=== PATIENT | male | born 1975 | race African-American/Black ===

== ENCOUNTER 2016-09-20 11:31 | Emergency (ER) | payer OTHER ==
[2016-09-20 11:37] VITALS: BP 154/76; PULSE 83; TEMP 98.2; BMI 41.3
[2016-09-20] MEDS ORDERED: IBUPROFEN 400 MG TABLET (FP) PO ONE ×2 (12:35→12:39)
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
== END 2016-09-20 12:37 | disposition home or self-care (01) ==
LOC: JERFT 11:31
DX: S49.81XA Other specified injuries of right shoulder and upper arm, initial encounter (principal); V44.5XXA Car driver injured in collision with heavy transport vehicle or bus in traffic accident, initial encounter; Y92.414 Local residential or business street as the place of occurrence of the external cause; Y93.89 Activity, other specified
CPT/HCPCS: 99281-25

== ENCOUNTER 2019-03-21 20:39 | Inpatient (IN) | payer OTHER ==
[2019-03-21] MEDS ORDERED: KETOROLAC TROMETHAMINE 30 MG/1 ML VIAL IVPUSH ONE (21:09)
--- NOTE | 2019-03-21 21:09 | PDOC ---
Rapid Medical Evaluation Chief Complaint: Pain Time Seen by Provider: 03/21/19 21:07 Medical Evaluation: Allergies Allergy/AdvReac Type Severity Reaction Status Date / Time No Known Allergies Allergy Verified 09/20/16 11:33 03/21/19 21:07 HPI: C/O constipation and history of renal stones x6 days seen at another hospital PE: No gross deficits ORDERS: CBC, CMP, UA, TORODOL Discharge Disposition - Diagnosis Back pain - Referrals - Patient Instructions - Post Discharge Activity
[2019-03-21 21:11] VITALS: BMI 41.3
[2019-03-21 22:08] LABS: BASO % 0.3 % (0-2.0); EOS % 0.7 % (0-4.5); HEMATOCRIT 44.3 % (35.4-49); HEMOGLOBIN 15.1 GM/dL (11.7-16.9); LYMPH % 19.2 % (8-40); MEAN CELL VOLUME 88.3 fl (80-96); MEAN PLT VOLUME 8.6 fl (7.5-11.1); MONO % 12.1 % (3.8-10.2); NEUT % 67.7 % (42.8-82.8); PLATELET COUNT 231 K/MM3 (134-434); RBC 5.02 M/mm3 (4.00-5.60); RDW 14.1 % (11.9-15.9); WHITE BLOOD COUNT 10.5 K/mm3 (4.0-10.0)
[2019-03-21 22:30] LABS: ALBUMIN 3.8 g/dl (3.4-5.0); CALCIUM 9.7 mg/dL (8.5-10.1); TOT PROT 8.2 g/dl (6.4-8.2)
[2019-03-21 22:43] LABS: EPI CELLS 0.3 /HPF (0-5/HPF); HYALINE CASTS 0 /lpf (0-8); PH,URINE 5.5 (5.0-8.0); URINE APPEARANCE CLEAR; URINE BACTERIA 1.2 /hpf (NEGATIVE); URINE BILIRUBIN NEGATIVE (NEGATIVE); URINE COLOR YELLOW; URINE GLUCOSE (UA) NEGATIVE (NEGATIVE); URINE KETONE NEGATIVE (NEGATIVE); URINE LEUK ESTERASE NEGATIVE (NEGATIVE); URINE NITRITE NEGATIVE (NEGATIVE); URINE PROTEIN NEGATIVE (NEGATIVE); URINE RBC 1 /hpf (0-4); URINE UROBILINOGEN 0.2 mg/dL (0.2-1.0); URINE WBC 0 /hpf (0-5)
--- NOTE | 2019-03-21 23:12 | PDOC ---
*Physical Exam - Vital Signs Last Vital Signs Temp Pulse Resp BP Pulse Ox 99.0 F 93 H 22 H 138/84 100 03/21/19 21:07 03/21/19 21:07 03/21/19 21:07 03/21/19 21:07 03/21/19 21:07 ED Treatment Course - LABORATORY CBC & Chemistry Diagram: 03/21/19 22:00 03/21/19 22:00 - ADDITIONAL ORDERS Additional order review: Laboratory Results 03/21/19 03/21/19 03/21/19 22:00 22:00 21:43 Sodium 133 L Potassium 5.0 Chloride 96 L Carbon Dioxide 30 Anion Gap 8 BUN 16.0 Creatinine 2.0 H Est GFR (CKD-EPI)AfAm 46.01 Est GFR (CKD-EPI)NonAf 39.70 Random Glucose 121 H Calcium 9.7 Total Bilirubin 1.0 AST 30 ALT 86 H Alkaline Phosphatase 142 H Total Protein 8.2 Albumin 3.8 Lipase 124 Urine Color Yellow Urine Appearance Clear Urine pH 5.5 Ur Specific [place] 1.011 Urine Protein Negative Urine Glucose (UA) Negative Urine Ketones Negative Urine Blood Trace Urine Nitrite Negative Urine Bilirubin Negative Urine Urobilinogen 0.2 Ur Leukocyte Esterase Negative Urine WBC (Auto) 0 Urine RBC (Auto) 1 Urine Casts (Auto) 0 U Epithel Cells (Auto) 0.3 Urine Bacteria (Auto) 1.2 03/21/19 22:00 RBC 5.02 MCV 88.3 MCHC 34.0 RDW 14.1 MPV 8.6 Neutrophils % 67.7 Lymphocytes % 19.2 Monocytes % 12.1 H Eosinophils % 0.7 Basophils % 0.3 Medical Decision Making - Medical Decision Making 03/21/19 23:11 Patient seen by the advanced practice provider under my direct supervision. Ancillary testing reviewed as necessary. I agree with plan as outlined by the advanced practice provider. *DC/Admit/Observation/Transfer Diagnosis at time of Disposition: Back pain - Referrals - Patient Instructions - Post Discharge Activity
--- NOTE | 2019-03-21 23:59 | PDOC ---
History of Present Illness - General Chief Complaint: Pain Stated Complaint: KIDNEY STONE Time Seen by Provider: 03/21/19 21:07 - History of Present Illness Initial Comments: 03/21/19 23:54 CHIEF COMPLAINT: kidney stone HISTORY OF PRESENT ILLNESS: 44 yo M with hx of NIDDM and BPH presents to ED with left flank and groin pain. Patient reports that last night, he and his "took pills to clean out our system for a diet," and around 2 am that night began feeling abdominal pain and started vomiting all night instead of making bowel movements. He went to [facility] where they did a CT and showed a kidney stone. He states "they gave me pain pills (tramadol) and sent me home, they told me to drink lots of water. He reports that his pain persisted so he went to [place] again the following Tuesday, where they gave him nausea medicine and laxatives/stool softeners, as he had not had a BM since the last . He has since also taken senna OTC and is still unable to go. He denies any fever but reports chills since this morning, as well as abdominal cramping and distension. No recent travel or sick contacts. PAST MEDICAL HISTORY: Denies past medical history FAMILY HISTORY: Denies SOCIAL HISTORY: Denies tobacco, alcohol, illicit drug use. SURGICAL HISTORY: Denies ALLERGIES: No known drug allergies REVIEW OF SYSTEMS General/Constitutional: Denies fever or chills. Denies weakness, weight change. HEENT: Denies change in vision. Denies ear pain or discharge. Denies sore throat. Cardiovascular: Denies chest pain or shortness of breath. Respiratory: Denies cough, wheezing, or hemoptysis. Gastrointestinal: Denies nausea, vomiting, diarrhea or constipation. Denies rectal bleeding. Genitourinary: Urinary frequency. Left groin pain. Musculoskeletal: Denies joint or muscle swelling or pain. Denies neck or back pain. Skin and breasts: Denies rash or easy bruising. Neurologic: Denies headache, vertigo, loss of consciousness, or loss of sensation. PHYSICAL EXAM General Appearance: Well-appearing, appropriately dressed. No apparent distress , no intoxication. HEENT: EOMI, PERRLA, normal ENT inspection, normal voice, TMs normal, pharynx normal. No conjunctival pallor. No photophobia, scleral icterus. Neck: Supple. Trachea midline. No tenderness, rigidity, carotid bruit, stridor , lymphadenopathy, or thyromegaly. Respiratory/Chest: Lungs CTAB. No shortness of breath, chest tenderness, respiratory distress, accessory muscle use. No crackles, rales, rhonchi, stridor , wheezing, dullness Cardiovascular: RRR. S1, S2. No JVD, murmur, bradycardia, tachycardia. Vascular Pulses: Dorsalis-Pedis (R): 2+, Dorsalis-Pedis (L): 2+ Gastrointestinal/Abdominal: Distended abdomen. Soft, no tenderness or rebound tenderness. No organomegaly, pulsatile mass, guarding, hernia, hepatomegaly, splenomegaly. Lymphatic: No adenopathy, tenderness. Musculoskeletal/Extremities: L CVA tenderness. Normal inspection. FROM of all extremities, normal capillary refill. Pelvis Stable. No CVA tenderness. No tenderness to extremities, pedal edema, swelling, erythema or deformity. Integumentary: Appropriate color, dry, warm. No cyanosis, erythema, jaundice or rash Neurologic: header set up operator II-XII intact. Fully oriented, alert. Appropriate mood/affect. Motor strength 5/5. No appreciable EOM palsy, facial droop or sensory deficit. 03/22/19 02:13 Past History - Past Medical History Allergies/Adverse Reactions: Allergies Allergy/AdvReac Type Severity Reaction Status Date / Time No Known Allergies Allergy Verified 03/21/19 21:11 Home Medications: Ambulatory Orders NK [No Known Home Medication] 09/20/16 COPD: No Diabetes: Yes Kidney Stones: Yes - Suicide/Smoking/Psychosocial Hx Smoking History: Former smoker Have you smoked in the past 12 months: No Information on smoking cessation initiated: No Hx Alcohol Use: No Drug/Substance Use Hx: No *Physical Exam - Vital Signs Last Vital Signs Temp Pulse Resp BP Pulse Ox 99.0 F 93 H 22 H 138/84 100 03/21/19 21:07 03/21/19 21:07 03/21/19 21:07 03/21/19 21:07 03/21/19 21:07 ED Treatment Course - LABORATORY CBC & Chemistry Diagram: 03/21/19 22:00 03/21/19 22:00 - ADDITIONAL ORDERS Additional order review: Laboratory Results 03/21/19 03/21/19 03/21/19 22:00 22:00 21:43 Sodium 133 L Potassium 5.0 Chloride 96 L Carbon Dioxide 30 Anion Gap 8 BUN 16.0 Creatinine 2.0 H Est GFR (CKD-EPI)AfAm 46.01 Est GFR (CKD-EPI)NonAf 39.70 Random Glucose 121 H Calcium 9.7 Total Bilirubin 1.0 AST 30 ALT 86 H Alkaline Phosphatase 142 H Total Protein 8.2 Albumin 3.8 Lipase 124 Urine Color Yellow Urine Appearance Clear Urine pH 5.5 Ur Specific [place] 1.011 Urine Protein Negative Urine Glucose (UA) Negative Urine Ketones Negative Urine Blood Trace Urine Nitrite Negative Urine Bilirubin Negative Urine Urobilinogen 0.2 Ur Leukocyte Esterase Negative Urine WBC (Auto) 0 Urine RBC (Auto) 1 Urine Casts (Auto) 0 U Epithel Cells (Auto) 0.3 Urine Bacteria (Auto) 1.2 03/21/19 22:00 RBC 5.02 MCV 88.3 MCHC 34.0 RDW 14.1 MPV 8.6 Neutrophils % 67.7 Lymphocytes % 19.2 Monocytes % 12.1 H Eosinophils % 0.7 Basophils % 0.3 Medical Decision Making - Medical Decision Making 03/22/19 02:11 44 yo M with hx of NIDDM and BPH presents to ED with left flank and groin pain. -labs, urine -CTAP -toradol CT shows left ureteral stone measuring 2.7 mm 6 cm downstream from ureteropelvic junction. Associated moderate hydronephrosis and extensive perinephric edema with mild ascites in left paracolic gutter. Creatinine 2.0. Will admit for JULIA secondary to stone. 03/22/19 02:18 Discussed case with admitting hospitalist resident, patient accepted for inpatient admission. *DC/Admit/Observation/Transfer Diagnosis at time of Disposition: Hydronephrosis with renal and ureteral calculus obstruction, JULIA (acute kidney injury) - Discharge Dispostion Decision to Admit order: Yes - Referrals - Patient Instructions - Post Discharge Activity
[2019-03-22] MEDS ORDERED: KETOROLAC TROMETHAMINE 30 MG/1 ML VIAL ONE (00:06)
[2019-03-22] MEDS ORDERED: KETOROLAC TROMETHAMINE 60 MG/2 ML VIAL IM ONE (00:14)
--- NOTE | 2019-03-22 02:29 | PN ---
Teaching Attending Note Name of Resident: Ivet Stanley ATTENDING PHYSICIAN STATEMENT I saw and evaluated the patient. I reviewed the resident's note and discussed the case with the resident. I agree with the resident's findings and plan as documented. SUBJECTIVE: Patient is a 44 year old man with PMH of NIDDM and BPH who presents to ED with left flank and groin pain. Patient reports that last night, he and his "took pills to clean out our system for a diet," and around 2 am that night began feeling abdominal pain and started vomiting all night instead of making bowel movements. He went to [facility] where they did a CT and showed a kidney stone. He states "they gave me pain pills (tramadol) and sent me home and told me to drink lots of water". He reports that his pain persisted so he went back to [place] and was given "nausea medicine and laxatives/stool softeners", as he had not had a BM since the last . He took Senna OTC and is still unable to have a BM. He denies any fever but reports chills since this morning, as well as abdominal cramping and distension. OBJECTIVE: Alert Vital Signs Period Temp Pulse Resp BP Sys/Woodson Pulse Ox Last 24 Hr 99.0 F 93 22 138/84 100 HEENT: No Jaundice, eye redness or discharge, PERRLA, EOMI. Normocephalic, atraumatic. External ears are normal and hearing is grossly intact. No nasal discharge. Neck: Supple, nontender. No palpable adenopathy or thyromegaly. No JVD Chest: Good effort. Clear to auscultation and percussion. Heart: Regular. No S3, rub or murmur Abdomen: Distended, soft, and left CVAT; no HSM. No rebound or guarding. Normal bowel sounds. Ext: Peripheral pulses intact. No leg edema. Skin: Warm and dry. No petechiae, rash or ecchymosis. Neuro: Alert. Oriented x3. CN 2-12 grossly intact. Sensation grossly intact in all four extremities and DTR are symmetric. Psych: Appropriate mood and affect. Good insight. Home Medications Medication Instructions Recorded NK [No Known Home Medication] 09/20/16 Abnormal Lab Results 03/21/19 03/21/19 22:00 22:00 WBC 10.5 H Monocytes % 12.1 H Sodium 133 L Chloride 96 L Creatinine 2.0 H Random Glucose 121 H ALT 86 H Alkaline Phosphatase 142 H ASSESSMENT AND PLAN: 1. Left kidney stone - Noncontrast CT of abdomen/pelvis shows left ureteral stone measuring 2.7 mm, 6 cm downstream from ureteropelvic junction. Associated moderate hydronephrosis and extensive perinephric edema with mild ascites in left paracolic gutter. Will treat with IV morphine for pain, IV NS, flomax and keep him NPO. Give a Fleet enema and Miralax after procedure. Strain his urine and do outpatient search for stone risk factor. Consult urology. 2. JULIA? - Unilateral kidney obstruction would not entirely explain azotemia. Will consult nephrology and avoid nephrotoxic agents such as NSAIDS, aminoglycosides, contrast dyes and certain Alternative medicine products. 2. DM For now, we will hold the home diabetes drugs and implement sliding scale insulin regimen. Provide comprehensive diabetes care with patient teaching and counseling about the importance of adherence to prescribed diabetes regimen, euglycemia, eye care and foot care. 3. Tobacco Use Counseled on risks associated with tobacco use. We will provide patient all the necessary assistance to facilitate smoking cessation and prescribe Nicotine patch. 4. Morbid Obesity Counseled on the risks associated with obesity. Will provide patient all the necessary assistance, counseling and positive reinforcement to facilitate weight loss. Consult vacuum applicator operator. 5. DVT prophylaxis - SCD for now and Heparin 5000u sq tid after ?urologic procedure. 6. Advance directives - Full code.
[2019-03-22] MEDS ORDERED: MORPHINE SULFATE 2 MG/ML VIAL IVPUSH PRN ×2 (02:56→15:10)
[2019-03-22] MEDS ORDERED: SODIUM CHLORIDE 1,000 ML IV SCH (03:00)
--- NOTE | 2019-03-22 03:00 | HP ---
CHIEF COMPLAINT: left flank pain PCP: Dr. Lizet Bedoya HISTORY OF PRESENT ILLNESS: Patient is a 44 y/o male with a history of DM, low testosterone, and frequent urination who presents with left flank pain. Patient had this pain beginning last week. On Tuesday at 12 am he took laxatives to help lose weight and the pain began at 2 am later that day. He went to [facility] where he had imaging done and was diagnosed with a kidney stone. He was sent home with pain medication. A few days later patient returned because he still had the pain and had not had a bowel movement in two days. At that time they told him it was too soon to have repeat imaging and he was sent home with stool softeners. Patient presents today because he still has the left flank pain and he has yet to have a bowel movement. the pain radiates to his lower back. Patient denies ever having a kidney stone in the past, reports he believe his mother has a kidney stone. Patient reports in the past he has some testicular pain where his testicles will become swollen and his stomach hurts, but he knew this was different because his testicles did not swell. Patient has recently been tested for STD's and reported they were all negative. He is sexually active with one female partner and does not use protection. Patient denies any genital discharge , and hematuria, or dysuria. He has had a few episodes of vomiting. Patient reports that he used to hold his urine often and now when he drinks liquid he typically has to urinate right after and it is not currently any different. ER course was notable for: (1)toradol (2) (3) Recent Travel: denies PAST MEDICAL HISTORY: DM, low testosterone, and frequent urination PAST SURGICAL HISTORY: n/a Social History: Smoking: denies Alcohol: socially Drugs: denies Family History: mother: kidney stones, DM, HTN, father: HTN Allergies No Known Allergies Allergy (Verified 03/21/19 21:11) HOME MEDICATIONS: Home Medications Medication Instructions Recorded NK [No Known Home Medication] 09/20/16 REVIEW OF SYSTEMS CONSTITUTIONAL: loss of appetite Absent: fever, chills, diaphoresis, generalized weakness, malaise, weight change HEENT: Absent: rhinorrhea, nasal congestion, throat pain, throat swelling, difficulty swallowing, mouth swelling, ear pain, eye pain, visual changes CARDIOVASCULAR: Absent: chest pain, syncope, palpitations, irregular heart rate, lightheadedness , peripheral edema RESPIRATORY: Absent: cough, shortness of breath, dyspnea with exertion, orthopnea, wheezing, stridor, hemoptysis GASTROINTESTINAL:abdominal distension Absent: abdominal pain, nausea, vomiting, diarrhea, constipation, melena, hematochezia GENITOURINARY: flank pain, lowere abdominal pressure Absent: dysuria, frequency, urgency, hesitancy, hematuria, genital pain MUSCULOSKELETAL: Absent: myalgia, arthralgia, joint swelling, back pain, neck pain SKIN: Absent: rash, itching, pallor HEMATOLOGIC/IMMUNOLOGIC: Absent: easy bleeding, easy bruising, lymphadenopathy, frequent infections ENDOCRINE: Absent: unexplained weight gain, unexplained weight loss, heat intolerance, cold intolerance NEUROLOGIC: Absent: headache, focal weakness or paresthesias, dizziness, unsteady gait, seizure, mental status changes, bladder or bowel incontinence PSYCHIATRIC: Absent: anxiety, depression, suicidal or homicidal ideation, hallucinations. PHYSICAL EXAMINATION Vital Signs - 24 hr 03/21/19 21:07 Temperature 99.0 F Pulse Rate 93 H Respiratory 22 H Rate Blood Pressure 138/84 O2 Sat by Pulse 100 Oximetry (%) GENERAL: Awake, alert, and fully oriented, in no acute distress. HEAD: Normal with no signs of trauma. EYES: Pupils equal, round and reactive to light, extraocular movements intact, EARS, NOSE, THROAT: , oropharynx clear without exudates. Moist mucous membranes. NECK: Normal range of motion, supple without lymphadenopathy, JVD, or masses. LUNGS: Breath sounds equal, clear to auscultation bilaterally. No wheezes, and no crackles. No accessory muscle use. HEART: Regular rate and rhythm, normal S1 and S2 without murmur, rub or gallop. ABDOMEN: distended, non tender, MUSCULOSKELETAL: left flank pain to lower back, no CVA tenderness LOWER EXTREMITIES: 2+ pulses, warm, well-perfused. No calf tenderness. No peripheral edema. SKIN: Warm, dry, normal turgor, no rashes or lesions noted, normal capillary refill. CBC, BMP 03/21/19 22:00 03/21/19 22:00 ASSESSMENT/PLAN: Patient is a 44 y/o male with a history of DM, low testosterone, and frequent urination who presents with Nephrolithiasis. #Nephrolithiasis with JULIA - CT: left ureteral stone measuring 2.7 mm 6cm downstream from uteropelvic junction - NS @ 125 - morphine 2 q4h - f/u consult Dr. Torres, Urology, NPO in case of any procedures in AM - patient would benefit for f/u with Nephrology as an outpatient for JULIA and further testing of stone - avoid further nephrotoxic agents in patient #constipation - fleet enema 1x ordered - miralax 17 gm bid #DM - BGM q6h with NPO - SS q6h - recommend out patient A1C f/u, discuss healthy lifestyle choices with diet and excercise #DVT ppz - SCD's for any possible Uro procedures today FEN - NS @ 125 - NPO Dispo: f/u with Urology Visit type - Emergency Visit Emergency Visit: Yes ED Registration Date: 03/22/19 Care time: The patient presented to the Emergency Department on the above date and was hospitalized for further evaluation of their emergent condition. - New Patient This patient is new to me today: Yes Date on this admission: 03/26/19 - Critical Care Critical Care patient: No ATTENDING PHYSICIAN STATEMENT I saw and evaluated the patient. I reviewed the resident's note and discussed the case with the resident. I agree with the resident's findings and plan as documented. SUBJECTIVE: OBJECTIVE: ASSESSMENT AND PLAN:
[2019-03-22] MEDS: INSULIN SLIDING SCALE (NOVOLOG) 1 VIAL SQ SCH ×4 (04:50→22:47)
[2019-03-22 06:29] LABS: BASO % 0.5 % (0-2.0); EOS % 0.9 % (0-4.5); HEMATOCRIT 38.3 % (35.4-49); LYMPH % 23.5 % (8-40); MCH 30.1 pg (25.7-33.7); MEAN CELL VOLUME 88.7 fl (80-96); MEAN PLT VOLUME 8.1 fl (7.5-11.1); MONO % 14.1 % (3.8-10.2); PLATELET COUNT 202 K/MM3 (134-434); RBC 4.32 M/mm3 (4.00-5.60); WHITE BLOOD COUNT 9.8 K/mm3 (4.0-10.0)
[2019-03-22 07:01] LABS: ALBUMIN 3.3 g/dl (3.4-5.0); BLOOD UREA NITROGEN 17.7 mg/dL (7-18); CALCIUM 8.8 mg/dL (8.5-10.1); CREATININE 1.8 mg/dL (0.55-1.3); POTASSIUM 4.3 mmol/L (3.5-5.1)
[2019-03-22] MEDS ORDERED: SODIUM PHOSPHATE/NA BIPHOS 133 ML ENEMA PR ONE ×2 (09:59→15:10)
[2019-03-22] MEDS ORDERED: POLYETHYLENE GLYCOL 3350 119 GM BTL PO SCH (10:00)
--- NOTE | 2019-03-22 10:06 | CON.GU ---
Consult Consult Specialty:: Reason for Consultation:: L ureteral calculus - History of Present Illness Chief Complaint: L flank pain History of Present Illness: 44 y/o male with a history of DM, low testosterone, and frequent urination who presents with left flank pain. Patient had this pain beginning last week. On Tuesday at 12 am he took laxatives to help lose weight and the pain began at 2 am later that day. He went to [facility] where he had imaging done and was diagnosed with a kidney stone. He was sent home with pain medication. A few days later patient returned because he still had the pain and had not had a bowel movement in two days. At that time they told him it was too soon to have repeat imaging and he was sent home with stool softeners. Patient presents today because he still has the left flank pain and he has yet to have a bowel movement. the pain radiates to his lower back. Patient denies ever having a kidney stone in the past, reports he believe his mother has a kidney stone. Patient reports in the past he has some testicular pain where his testicles will become swollen and his stomach hurts, but he knew this was different because his testicles did not swell. Patient has recently been tested for STD's and reported they were all negative. He is sexually active with one female partner and does not use protection. Patient denies any genital discharge, and hematuria, or dysuria. He has had a few episodes of vomiting. Patient reports that he used to hold his urine often and now when he drinks liquid he typically has to urinate right after and it is not currently any different. Gu cons req - History Source History Provided By: Patient, Medical Record Limitations to Obtaining History: No Limitations - Past Medical History Renal/: Yes: Renal Calculi - Alcohol/Substance Use Hx Alcohol Use: No - Smoking History Smoking history: Former smoker Have you smoked in the past 12 months: No If you are a former smoker, when did you quit?: 2004 Home Medications - Allergies Allergies/Adverse Reactions: Allergies Allergy/AdvReac Type Severity Reaction Status Date / Time No Known Allergies Allergy Verified 03/21/19 21:11 - Home Medications Home Medications: Ambulatory Orders NK [No Known Home Medication] 09/20/16 Physical Exam- Vital Signs: Vital Signs Temperature 98.7 F 03/22/19 09:00 Pulse Rate 80 03/22/19 09:00 Respiratory Rate 19 08/15/19 09:00 Blood Pressure 131/84 03/22/19 09:00 O2 Sat by Pulse Oximetry (%) 98 03/22/19 09:00 Renal/: Yes: CVA Tenderness - Left Labs: CBC, BMP 03/22/19 06:00 03/22/19 06:00 Imaging - Results Cat Scan: Image Reviewed Problem List - Problems (1) Ureteral calculus Assessment/Plan: L ureteroscopic laser lithotripsy and JJ stent insertion Code(s): N20.1 - CALCULUS OF URETER (2) JULIA (acute kidney injury) Code(s): N17.9 - ACUTE KIDNEY FAILURE, UNSPECIFIED (3) Hydronephrosis with renal and ureteral calculus obstruction Code(s): N13.2 - HYDRONEPHROSIS WITH RENAL AND URETERAL CALCULOUS OBSTRUCTION
[2019-03-22] MEDS ORDERED: INSULIN SLIDING SCALE (NOVOLOG) 1 VIAL SQ SCH (10:08)
[2019-03-22] MEDS ORDERED: GLYCERIN 1 RECTAL SUPPOSITORY, ADULT PR PRN (11:42)
[2019-03-22 11:50] LABS: INR 1.18 (0.83-1.09); PROTHROMBIN TIME (PATIENT) 13.9 SEC (9.7-13.0)
[2019-03-22 11:52] LABS: ACTIVATED PTT 35.5 SECONDS (25.2-36.5)
--- NOTE | 2019-03-22 13:47 | OP ---
Operative Note - Note: Operative Date: 03/22/19 Pre-Operative Diagnosis: L ureteral calculus Operation: L ureteroscopy, stone manipulation, and JJ stent insertion Findings: L ureteral calculus Post-Operative Diagnosis: Same as Pre-op Surgeon: Pedro Torres Anesthesiologist/CLOTH DESIGNER: Wendy Gee Anesthesia: General Estimated Blood Loss (mls): 0 Drains & Tubes with Location: 6 fr 26 cm L JJ stent Operative Report Dictated: Yes
[2019-03-22] MEDS ORDERED: PROPOFOL 20 ML ONE (13:51)
[2019-03-22] MEDS ORDERED: MIDAZOLAM HCL 2 MG/2 ML SINGLE DOSE VIAL ONE (13:52)
[2019-03-22] MEDS ORDERED: ceFAZolin SODIUM 1 GM VIAL IVPB ONE (14:00)
[2019-03-22] MEDS ORDERED: IOHEXOL 300 MG/ML INFUS..BTL IJ ONE ×2 (14:10)
[2019-03-22] MEDS ORDERED: GLYCERIN 1 RECTAL SUPPOSITORY, ADULT RC PRN (15:10)
--- NOTE | 2019-03-22 15:51 | OP ---
DATE OF OPERATION: 03/22/2019 PREOPERATIVE DIAGNOSIS: Left ureteral calculus. POSTOPERATIVE DIAGNOSIS: Left ureteral calculus. PROCEDURE: Cystoscopy, left ureteroscopy, stone manipulation, and Double J stent insertion. SURGEON: Pedro Tomlinson M.D. STEEL ERECTOR APPRENTICE: None. ANESTHESIA: General via laryngeal mask. ANESTHESIOLOGIST: Wendy Limon CRNA SPECIMENS: None. CULTURES: None. DRAINS: 6 Libyan 26-cm left Double J stent. ESTIMATED BLOOD LOSS: Negligible. COMPLICATIONS: None. DESCRIPTION OF PROCEDURE: The patient was brought to the operating room, placed on the operating table in the supine position. After administration of general anesthesia via laryngeal mask, intravenous antibiotics were administered, and the patient was placed in the dorsal lithotomy position. The perineum and genitals were prepped and draped in the usual sterile manner. 22 Libyan cystoscope was inserted into the bladder under direct vision. Anterior urethra was normal. The prostatic urethra was normal. The bladder was entered, thoroughly inspected. There were no foreign bodies, tumors, stones, inflammation. Both ureteral orifices were in their usual location with a clear efflux bilaterally. Left ureteral orifice was cannulated with a 0.038 guidewire, which was advanced to the level of the left renal pelvis under fluoroscopic and direct visual guidance. Now the bladder was emptied and the scope removed. The semirigid ureteroscope was inserted alongside the guidewire to the level of the mid ureter where it could no longer be advanced due to an angulation of the ureter and possible stricture there. The 2nd guidewire was passed through the ureteroscope, coiled within the renal pelvis. The semirigid ureteroscope was removed, and the flexible ureteroscope was inserted in a monorail fashion over the guidewire to the level of the mid ureter, where the scope could no longer be advanced. The guidewire was removed, and ureteroscope was done. Question of stone at proximal ureter was not clear. The stone was attempted to be pushed into the kidney, and the scope could not be advanced into the proximal ureter to reach the stone, so the decision was made to leave the stent, come back another time for the stone in the ureter. The flexible ureteroscope was now withdrawn, inspecting the entire course of the distal half of the ureter and no stones were seen there. The cystoscope was back loaded, and a retrograde pyelogram was done demonstrated mild left hydronephrosis. The left ureteral stone was radiolucent. The 6-Libyan, 26-cm, left double J stent was inserted over the guidewire under direct visual and fluoroscopic guidance leaving 1 coil in the renal pelvis and 1 coil in the bladder. Bladder was emptied, cystoscope removed. He tolerated the procedure well. Transferred to recovery room in stable condition. To be followed up in the office next week to schedule ureteroscopic laser lithotripsy. PEDRO TOMLINSON M.D. [id number]
[2019-03-22] MEDS: SODIUM CHLORIDE 1,000 ML IV SCH ×2 (16:30→22:49)
--- NOTE | 2019-03-22 17:52 | PN ---
Physical Exam: SUBJECTIVE: Patient seen and examined at bedside. no acute events OBJECTIVE: Vital Signs Period Temp Pulse Resp BP Sys/Woodson Pulse Ox Last 24 Hr 98.1 F-99.0 F 75-95 14-23 131-166/79-96 94-100 GENERAL: The patient is awake, alert, and fully oriented, in no acute distress. HEAD: Normal with no signs of trauma. NECK: supple. LUNGS: Breath sounds equal, clear to auscultation bilaterally, no wheezes, no crackles, no accessory muscle use. HEART: Regular rate and rhythm, S1, S2 without murmur, rub or gallop. ABDOMEN: Soft, mild tenderness left midepigast, slightly distended, hypoactive bowel sounds, no guarding, no rebound. EXTREMITIES: 2+ pulses, warm, well-perfused, no edema. CVA tenderness in left side. NEUROLOGICAL: Cranial nerves II through XII grossly intact. Normal speech, gait not observed. PSYCH: Normal mood, normal affect. SKIN: Warm, dry, no rashes or lesions noted Laboratory Results - last 24 hr 03/21/19 03/21/19 03/21/19 21:43 22:00 22:00 WBC 10.5 H RBC 5.02 Hgb 15.1 Hct 44.3 MCV 88.3 MCH 30.0 MCHC 34.0 RDW 14.1 Plt Count 231 MPV 8.6 Absolute Neuts (auto) 7.1 Neutrophils % 67.7 Lymphocytes % 19.2 Monocytes % 12.1 H Eosinophils % 0.7 Basophils % 0.3 Nucleated RBC % 0 PT with INR INR PTT (Actin FS) Sodium 133 L Potassium 5.0 Chloride 96 L Carbon Dioxide 30 Anion Gap 8 BUN 16.0 Creatinine 2.0 H Est GFR (CKD-EPI)AfAm 46.01 Est GFR (CKD-EPI)NonAf 39.70 POC Glucometer Random Glucose 121 H Calcium 9.7 Total Bilirubin 1.0 AST 30 ALT 86 H Alkaline Phosphatase 142 H Total Protein 8.2 Albumin 3.8 Lipase Urine Color Yellow Urine Appearance Clear Urine pH 5.5 Ur Specific [place] 1.011 Urine Protein Negative Urine Glucose (UA) Negative Urine Ketones Negative Urine Blood Trace Urine Nitrite Negative Urine Bilirubin Negative Urine Urobilinogen 0.2 Ur Leukocyte Esterase Negative Urine WBC (Auto) 0 Urine RBC (Auto) 1 Urine Casts (Auto) 0 U Epithel Cells (Auto) 0.3 Urine Bacteria (Auto) 1.2 Blood Type Antibody Screen 03/21/19 03/22/19 03/22/19 22:00 06:00 06:00 WBC 9.8 RBC 4.32 Hgb 13.0 Hct 38.3 MCV 88.7 MCH 30.1 MCHC 34.0 RDW 14.0 Plt Count 202 MPV 8.1 Absolute Neuts (auto) 6.0 Neutrophils % 61.0 Lymphocytes % 23.5 D Monocytes % 14.1 H Eosinophils % 0.9 Basophils % 0.5 Nucleated RBC % 0 PT with INR INR PTT (Actin FS) Sodium 135 L Potassium 4.3 Chloride 100 Carbon Dioxide 28 Anion Gap 8 BUN 17.7 Creatinine 1.8 H Est GFR (CKD-EPI)AfAm 52.26 Est GFR (CKD-EPI)NonAf 45.09 POC Glucometer Random Glucose 107 H Calcium 8.8 Total Bilirubin 1.0 AST 18 ALT 67 H Alkaline Phosphatase 117 Total Protein 7.0 Albumin 3.3 L Lipase 124 Urine Color Urine Appearance Urine pH Ur Specific [place] Urine Protein Urine Glucose (UA) Urine Ketones Urine Blood Urine Nitrite Urine Bilirubin Urine Urobilinogen Ur Leukocyte Esterase Urine WBC (Auto) Urine RBC (Auto) Urine Casts (Auto) U Epithel Cells (Auto) Urine Bacteria (Auto) Blood Type Antibody Screen 03/22/19 03/22/19 03/22/19 09:08 11:19 11:19 WBC RBC Hgb Hct MCV MCH MCHC RDW Plt Count MPV Absolute Neuts (auto) Neutrophils % Lymphocytes % Monocytes % Eosinophils % Basophils % Nucleated RBC % PT with INR 13.90 H INR 1.18 H PTT (Actin FS) 35.5 Sodium Potassium Chloride Carbon Dioxide Anion Gap BUN Creatinine Est GFR (CKD-EPI)AfAm Est GFR (CKD-EPI)NonAf POC Glucometer 116 Random Glucose Calcium Total Bilirubin AST ALT Alkaline Phosphatase Total Protein Albumin Lipase Urine Color Urine Appearance Urine pH Ur Specific [place] Urine Protein Urine Glucose (UA) Urine Ketones Urine Blood Urine Nitrite Urine Bilirubin Urine Urobilinogen Ur Leukocyte Esterase Urine WBC (Auto) Urine RBC (Auto) Urine Casts (Auto) U Epithel Cells (Auto) Urine Bacteria (Auto) Blood Type B POSITIVE Antibody Screen Negative 03/22/19 16:32 WBC RBC Hgb Hct MCV MCH MCHC RDW Plt Count MPV Absolute Neuts (auto) Neutrophils % Lymphocytes % Monocytes % Eosinophils % Basophils % Nucleated RBC % PT with INR INR PTT (Actin FS) Sodium Potassium Chloride Carbon Dioxide Anion Gap BUN Creatinine Est GFR (CKD-EPI)AfAm Est GFR (CKD-EPI)NonAf POC Glucometer 109 Random Glucose Calcium Total Bilirubin AST ALT Alkaline Phosphatase Total Protein Albumin Lipase Urine Color Urine Appearance Urine pH Ur Specific [place] Urine Protein Urine Glucose (UA) Urine Ketones Urine Blood Urine Nitrite Urine Bilirubin Urine Urobilinogen Ur Leukocyte Esterase Urine WBC (Auto) Urine RBC (Auto) Urine Casts (Auto) U Epithel Cells (Auto) Urine Bacteria (Auto) Blood Type Antibody Screen Active Medications Generic Name Dose Route Start Last Admin Trade Name Freq PRN Reason Stop Dose Admin Glycerin 1 each 03/22/19 15:10 Glycerin Suppository Adult - RC DAILY PRN CONSTIPATION Sodium Chloride 1,000 mls @ 125 mls/hr 03/22/19 15:10 Normal Saline - IV ASDIR [facility] Insulin Aspart 1 vial 03/22/19 16:08 03/22/19 16:42 Novolog Vial Sliding Scale - SQ Not Given Q6H [facility] Protocol Morphine Sulfate 2 mg 03/22/19 15:10 Morphine Sulfate IVPUSH Q4H PRN PAIN LEVEL 6-10 Polyethylene Glycol 17 gm 03/22/19 22:00 Miralax (For Daily Use) - PO BID [facility] ASSESSMENT/PLAN: Patient is a 44 y/o male with a history of DM, low testosterone, and frequent urination who presents with Nephrolithiasis. #Nephrolithiasis with JULIA - CT: left ureteral stone measuring 2.7 mm 6cm downstream from uteropelvic junction. - morphine 2g q4h PRN - Dr. Torres did laser lithotripsy nd JJ stent placed. - avoid further nephrotoxic agents in patient #constipation - glycerin suppository given will see if pt has BM tm AM - miralax 17 gm bid #DM - BGM q6h with NPO - SS q6h - recommend out patient A1C f/u, discuss healthy lifestyle choices with diet and excercise #DVT ppx - SCD's for any possible Uro procedures today FEN regular diet, off fluids, monitor lytes Dispo: f/u with Urology op note Visit type - Emergency Visit Emergency Visit: Yes ED Registration Date: 03/22/19 Care time: The patient presented to the Emergency Department on the above date and was hospitalized for further evaluation of their emergent condition. - New Patient This patient is new to me today: Yes Date on this admission: 03/22/19 - Critical Care Critical Care patient: No - Discharge Referral Referred to [facility] Med P.C.: No ATTENDING PHYSICIAN STATEMENT I saw and evaluated the patient. I reviewed the resident's note and discussed the case with the resident. I agree with the resident's findings and plan as documented. SUBJECTIVE: OBJECTIVE: ASSESSMENT AND PLAN:
--- NOTE | 2019-03-22 19:18 | PN ---
Teaching Attending Note Name of Resident: Shaq Dupont ATTENDING PHYSICIAN STATEMENT I saw and evaluated the patient. I reviewed the resident's note and discussed the case with the resident. I agree with the resident's findings and plan as documented. SUBJECTIVE: Patient is feeling better , no fever, at bedside OBJECTIVE: Vital Signs Temperature 98.5 F 03/22/19 18:15 Pulse Rate 88 03/22/19 18:15 Respiratory Rate 17 03/22/19 18:15 Blood Pressure 132/76 03/22/19 18:15 O2 Sat by Pulse Oximetry (%) 95 03/22/19 18:15 GENERAL: The patient is awake, alert, and fully oriented, in no acute distress. HEAD: Normal with no signs of trauma.NECK: supple. LUNGS: Breath sounds equal, clear to auscultation bilaterally, no wheezes, no crackles, no accessory muscle use. HEART: Regular rate and rhythm, S1, S2 without murmur, rub or gallop. ABDOMEN: Soft, mild CVA tenderness , positive for BS, no guarding, no rebound. EXTREMITIES: 2+ pulses, warm, well-perfused, no edema. CVA tenderness in left side. NEUROLOGICAL: Cranial nerves II through XII grossly intact. Normal speech, gait is stable PSYCH: Normal mood, normal affect. SKIN: Warm, dry, no rashes or lesions noted CBCD WBC 9.8 K/mm3 (4.0-10.0) 03/22/19 06:00 RBC 4.32 M/mm3 (4.00-5.60) 03/22/19 06:00 Hgb 13.0 GM/dL (11.7-16.9) 03/22/19 06:00 Hct 38.3 % (35.4-49) 03/22/19 06:00 MCV 88.7 fl (80-96) 03/22/19 06:00 MCHC 34.0 g/dl (32.0-35.9) 03/22/19 06:00 RDW 14.0 % (11.9-15.9) 03/22/19 06:00 Plt Count 202 K/MM3 (134-434) 03/22/19 06:00 MPV 8.1 fl (7.5-11.1) 03/22/19 06:00 CMP Sodium 135 mmol/L (136-145) L 08/15/19 06:00 Potassium 4.3 mmol/L (3.5-5.1) 03/22/19 06:00 Chloride 100 mmol/L (98-107) 03/22/19 06:00 Carbon Dioxide 28 mmol/L (21-32) 03/22/19 06:00 Anion Gap 8 MMOL/L (8-16) 03/22/19 06:00 BUN 17.7 mg/dL (7-18) 03/22/19 06:00 Creatinine 1.8 mg/dL (0.55-1.3) H 03/22/19 06:00 Random Glucose 107 mg/dL (74-106) H 03/22/19 06:00 Calcium 8.8 mg/dL (8.5-10.1) 03/22/19 06:00 Total Bilirubin 1.0 mg/dL (0.2-1) 03/22/19 06:00 AST 18 U/L (15-37) 03/22/19 06:00 ALT 67 U/L (13-61) H 03/22/19 06:00 Alkaline Phosphatase 117 U/L (45-117) 03/22/19 06:00 Total Protein 7.0 g/dl (6.4-8.2) 03/22/19 06:00 Albumin 3.3 g/dl (3.4-5.0) L 03/22/19 06:00 Current Medications Generic Name Dose Route Start Last Admin Trade Name Freq PRN Reason Stop Dose Admin Glycerin 1 each 03/22/19 15:10 03/22/19 19:10 Glycerin Suppository Adult - RC 1 each DAILY PRN Administration CONSTIPATION Sodium Chloride 1,000 mls @ 125 mls/hr 03/22/19 15:10 03/22/19 16:30 Normal Saline - IV Not Given ASDIR [facility] Insulin Aspart 1 vial 03/22/19 16:08 03/22/19 16:42 Novolog Vial Sliding Scale - SQ Not Given Q6H [facility] Protocol Morphine Sulfate 2 mg 03/22/19 15:10 Morphine Sulfate IVPUSH Q4H PRN PAIN LEVEL 6-10 Polyethylene Glycol 17 gm 03/22/19 22:00 Miralax (For Daily Use) - PO BID [facility] Home Medications Medication Instructions Recorded Alfuzosin HCl PO DAILY 03/22/19 Amox-Tr/K Cl [Augmentin - 500Mg 1 tab PO BID #14 tab 03/22/19 Tablet] Metformin HCl PO BID 03/22/19 Tamsulosin HCl 0.4 mg PO DAILY 30 Days #30 capsule 03/22/19 ASSESSMENT AND PLAN: Patient is a 44 y/o male with a history of DM, presents with frequent urination and was found to have 4mm obstructing stone in the proximal and mid left ureter with mild to moderate left hydronephrosis # Acute mild to moderate left hydronephrosis with 4mm obstructing stone going for stent placement by dr lux # T2DM continue home meds. # Acute constipation: 2 suppositories glecerin ordered #DVT ppx: SCD's for any possible Uro procedures today possible dc post procedure
[2019-03-22] MEDS: POLYETHYLENE GLYCOL 3350 119 GM BTL PO SCH (22:46)
[2019-03-23] MEDS: INSULIN SLIDING SCALE (NOVOLOG) 1 VIAL SQ SCH ×2 (05:12→10:32)
[2019-03-23] MEDS: SODIUM CHLORIDE 1,000 ML IV SCH (05:13)
[2019-03-23 07:41] VITALS: TEMP 98.8
[2019-03-23 08:28] LABS: BASO % 0.5 % (0-2.0); EOS % 2.2 % (0-4.5); HEMATOCRIT 38.4 % (35.4-49); HEMOGLOBIN 13.2 GM/dL (11.7-16.9); MCH 30.4 pg (25.7-33.7); MCHC 34.4 g/dl (32.0-35.9); MEAN CELL VOLUME 88.4 fl (80-96); MEAN PLT VOLUME 8.2 fl (7.5-11.1); MONO % 12.5 % (3.8-10.2); NEUT % 54.8 % (42.8-82.8); PLATELET COUNT 214 K/MM3 (134-434); RBC 4.34 M/mm3 (4.00-5.60); RDW 14.1 % (11.9-15.9); WHITE BLOOD COUNT 7.1 K/mm3 (4.0-10.0)
[2019-03-23 09:20] LABS: ALBUMIN 3.3 g/dl (3.4-5.0); BILIRUBIN,TOTAL 0.7 mg/dL (0.2-1); BLOOD UREA NITROGEN 16.9 mg/dL (7-18); CALCIUM 8.7 mg/dL (8.5-10.1); CREATININE 1.3 mg/dL (0.55-1.3); MAGNESIUM 2.6 mg/dL (1.8-2.4); POTASSIUM 4.5 mmol/L (3.5-5.1); TOT PROT 7.2 g/dl (6.4-8.2)
[2019-03-23] MEDS: POLYETHYLENE GLYCOL 3350 119 GM BTL PO SCH (10:34)
[2019-03-23 10:44] VITALS: BP 129/91; PULSE 77
--- NOTE | 2019-03-23 11:49 | EKG ---
Test Reason : Blood Pressure : / mmHG Vent. Rate : 075 BPM Atrial Rate : 075 BPM P-R Int : 174 ms QRS Dur : 086 ms QT Int : 392 ms P-R-T Axes : 040 036 016 degrees QTc Int : 437 ms NORMAL SINUS RHYTHM NORMAL ECG NO PREVIOUS ECGS AVAILABLE Confirmed by MALINA TA MD ([id number]) on 03/23/2019 11:49:26 AM Referred By: Confirmed By:MALINA TA MD
--- NOTE | 2019-03-23 14:02 | DS ---
Physical Exam: SUBJECTIVE: Patient seen and examined OBJECTIVE: Vital Signs Period Temp Pulse Resp BP Sys/Woodson Pulse Ox Last 24 Hr 98.1 F-98.9 F 75-95 14-23 129-166/76-96 94-97 PHYSICAL EXAM GENERAL: The patient is awake, alert, and fully oriented, in no acute distress. HEAD: Normal with no signs of trauma. EYES: PERRL, extraocular movements intact, sclera anicteric, conjunctiva clear. ENT: Ears normal, nares patent, oropharynx clear without exudates, moist mucous membranes. NECK: Trachea midline, full range of motion, supple. LUNGS: Breath sounds equal, clear to auscultation bilaterally, no wheezes, no crackles, no accessory muscle use. HEART: Regular rate and rhythm, S1, S2 without murmur, rub or gallop. ABDOMEN: Soft, nontender, nondistended, normoactive bowel sounds, no guarding, no rebound, no hepatosplenomegaly, no masses. EXTREMITIES: 2+ pulses, warm, well-perfused, no edema. NEUROLOGICAL: Cranial nerves II through XII grossly intact. Normal speech, gait not observed. PSYCH: Normal mood, normal affect. SKIN: Warm, dry, normal turgor, no rashes or lesions noted. LABS Laboratory Results - last 24 hr 03/22/19 03/22/19 03/23/19 16:32 22:35 05:07 WBC RBC Hgb Hct MCV MCH MCHC RDW Plt Count MPV Absolute Neuts (auto) Neutrophils % Lymphocytes % Monocytes % Eosinophils % Basophils % Nucleated RBC % Sodium Potassium Chloride Carbon Dioxide Anion Gap BUN Creatinine Est GFR (CKD-EPI)AfAm Est GFR (CKD-EPI)NonAf POC Glucometer 109 113 105 Random Glucose Calcium Magnesium Total Bilirubin AST ALT Alkaline Phosphatase Total Protein Albumin 03/23/19 03/23/19 07:42 07:42 WBC 7.1 RBC 4.34 Hgb 13.2 Hct 38.4 MCV 88.4 MCH 30.4 MCHC 34.4 RDW 14.1 Plt Count 214 MPV 8.2 Absolute Neuts (auto) 3.9 Neutrophils % 54.8 Lymphocytes % 30.0 D Monocytes % 12.5 H Eosinophils % 2.2 D Basophils % 0.5 Nucleated RBC % 0 Sodium 138 Potassium 4.5 Chloride 103 Carbon Dioxide 26 Anion Gap 8 BUN 16.9 Creatinine 1.3 Est GFR (CKD-EPI)AfAm 77.45 Est GFR (CKD-EPI)NonAf 66.83 POC Glucometer Random Glucose 107 H Calcium 8.7 Magnesium 2.6 H Total Bilirubin 0.7 AST 38 H ALT 69 H Alkaline Phosphatase 151 H Total Protein 7.2 Albumin 3.3 L HOSPITAL COURSE: Date of Admission:03/22/19 Date of Discharge: 03/23/19 Discharge Summary Reason For Visit: ACUTE KIDNEY INJURY,HYDROEPHROSIS WITH RENAL AND Condition: Stable - Instructions Diet, Activity, Other Instructions: f/u monday 03/26, disch on tamsulosin 0.4 mg qd, augmentin 500 mg bid x 1 week, ibuprofen Referrals: Pedro Torres MD [Staff Physician] - Disposition: HOME - Home Medications Comprehensive Discharge Medication List: Ambulatory Orders Alfuzosin HCl PO DAILY 03/22/19 Amox-Tr/K Cl [Augmentin - 500Mg Tablet] 1 tab PO BID #14 tab 03/22/19 Metformin HCl PO BID 03/22/19 Tamsulosin HCl 0.4 mg PO DAILY 30 Days #30 capsule 03/22/19 - Discharge Referral Referred to [facility] Med P.C.: No ATTENDING PHYSICIAN STATEMENT I saw and evaluated the patient. I reviewed the resident's note and discussed the case with the resident. I agree with the resident's findings and plan as documented. SUBJECTIVE: OBJECTIVE: ASSESSMENT AND PLAN:
== END 2019-03-23 11:15 | disposition home or self-care (01) | DRG 660 ==
LOC: JER 20:39 → JERBED 03-22 02:14 → J5S 03-22 08:37
PROVIDERS: ADMIT Internal Medicine; ATTEND Internal Medicine
PROC: 0T778DZ Dilation of Left Ureter with Intraluminal Device, Via Natural or Artificial Opening Endoscopic (ICD-10-PCS; principal; 2019-03-22 14:30)
PROC: BT1FZZZ Fluoroscopy of Left Kidney, Ureter and Bladder (ICD-10-PCS; 2019-03-22 14:30)
DX: N13.2 Hydronephrosis with renal and ureteral calculous obstruction (principal); Z68.41 Body mass index [BMI] 40.0-44.9, adult; N17.9 Acute kidney failure, unspecified; K59.00 Constipation, unspecified; E11.9 Type 2 diabetes mellitus without complications; N40.0 Benign prostatic hyperplasia without lower urinary tract symptoms; E66.01 Morbid (severe) obesity due to excess calories
CPT/HCPCS: 36415; 71045-TC-FY; 74176-TC; 76000-TC-FY; 80053; 81003; 82962; 83690; 83735; 85025; 85610; 85730; 86850; 86900; 86901; 93005; 93010; 94760; 99285-25; J7030

== ENCOUNTER 2019-04-05 13:14 | Day surgery (SDC) | payer OTHER ==
[2019-04-04 17:06] VITALS: BMI 40.4
--- NOTE | 2019-04-05 14:58 | OP ---
Operative Note - Note: Operative Date: 04/05/19 Pre-Operative Diagnosis: L ureteral calculus Operation: L ureteroscopic laser lithotripsy and JJ stent change Findings: L prox-mid ureteral calculus Post-Operative Diagnosis: Same as Pre-op Anesthesiologist/DROP CREW LABORER: Boy Mishra Anesthesia: General Specimens Removed: L JJ stent Estimated Blood Loss (mls): 0 Drains & Tubes with Location: 6 fr 26 cm L JJ stent Operative Report Dictated: Yes
[2019-04-05] MEDS ORDERED: PROPOFOL 20 ML ONE ×2 (15:56)
[2019-04-05] MEDS ORDERED: ceFAZolin SODIUM 1 GM VIAL ONE (16:08)
[2019-04-05] MEDS ORDERED: ceFAZolin SODIUM 1 GM VIAL IVPB ONE (16:09)
[2019-04-05] MEDS ORDERED: DEXAMETHASONE SOD PHOSPHATE 4 MG/1 ML VIAL ONE (16:11)
[2019-04-05] MEDS ORDERED: oxyCODONE HCL 5 MG TABLET PO PRN (17:04)
[2019-04-05] MEDS ORDERED: ACETAMINOPHEN 325 MG TABLET (FP) PO PRN (17:04)
[2019-04-05] MEDS ORDERED: ONDANSETRON 4 MG/2 ML VIAL IVPUSH PRN (17:04)
[2019-04-05] MEDS ORDERED: LACTATED RINGERS SOLUTION 1,000 ML IV SCH (17:15)
[2019-04-05 20:31] VITALS: BP 120/75; PULSE 61; TEMP 98
--- NOTE | 2019-04-05 21:29 | OP ---
DATE OF OPERATION: 04/05/2019 PREOPERATIVE DIAGNOSIS: Left ureteral calculus. POSTOPERATIVE DIAGNOSIS: Left ureteral calculus. PROCEDURE: Left ureteroscopic laser lithotripsy and left double-J stent change. SURGEON: Pedro Tomlinson MD IT PROFESSIONAL: None. ANESTHESIA: General via laryngeal mask. ANESTHESIOLOGIST: Akira Duran DO SPECIMENS: Left double-J stent. CULTURES: None. DRAINS: A 6-Omani 26-cm left double-J stent. ESTIMATED BLOOD LOSS: None. COMPLICATION: None. PROCEDURE: The patient was brought in the operating room, placed on the operating table in the supine position. After administration of general anesthesia via laryngeal mask, intravenous antibiotics were administered and sequential compression devices were placed. The patient was placed in the dorsal lithotomy position and the genitals and perineum were prepped and draped in the usual sterile manner. A 22-Omani cystoscope was inserted into the bladder under direct vision. Anterior and posterior urethras were normal. The bladder was entered, thoroughly inspected. There were no tumors, stones, of inflammation. Both ureteral orifices were in the usual location with left double-J stent in the left ureteral orifice. The left double-J stent was grasped at its tip and brought to the urethral meatus and cannulated with a 0.038 guidewire, which was advanced to the level of the left renal pelvis under fluoroscopic guidance. The double-J stent was removed, sent to Pathology as specimen. Now, dual-lumen catheter was inserted, retrograde pyelogram was done, demonstrated left proximal ureteral calculus, mild left hydronephrosis. The super-stiff guidewire was inserted through the dual-lumen catheter to the level of the left renal pelvis. The dual-lumen catheter was removed and now the flexible ureteroscope was inserted in monorail fashion to the level of the proximal ureter over the guidewire. Guidewire was removed. Ureteroscopy was done. A midureteral stone was identified and, using a 365-micron laser fiber, laser lithotripsy was done. At the beginning of the laser lithotripsy, the stone was inadvertently pushed up into the kidney and ureteroscope was advanced into the kidney and, despite multiple attempts, unable to retrieve the stone. Now retrograde pyelogram was done, demonstrated no extravasation of contrast. Small filling defect in the renal pelvis consistent with the stone. The ureteroscope was withdrawn, inspecting the entire course of the ureter, and no additional stones were seen. There was no extravasation of contrast as well. The cystoscope was back-loaded and a 6-Omani 26-cm left double-J stent was inserted over the guidewire under direct visual and fluoroscopic guidance, leaving 1 coil in the renal pelvis and 1 coil in the bladder. The bladder was emptied, cystoscope removed. The stent was secured to the penis with a suture and a Tegaderm. He tolerated the procedure well, was transferred to recovery in stable condition. PLAN: Follow up in the office Tuesday for stent removal followed by ESWL on left. PEDRO TOMLINSON M.D. [id number]
== END 2019-04-05 19:05 | disposition home or self-care (01) ==
LOC: JASU-SURG 13:14
PROVIDERS: ATTEND Urology
PROC: 0TF78ZZ Fragmentation in Left Ureter, Via Natural or Artificial Opening Endoscopic (ICD-10-PCS; principal; 2019-04-05 14:30)
PROC: 0T778DZ Dilation of Left Ureter with Intraluminal Device, Via Natural or Artificial Opening Endoscopic (ICD-10-PCS; 2019-04-05 14:30)
DX: N20.1 Calculus of ureter (principal)
CPT/HCPCS: 76000-TC-FY; 82962; 94760

== ENCOUNTER 2019-05-15 07:18 | Day surgery (SDC) | payer OTHER ==
[2019-05-14 09:04] VITALS: BMI 40.4
--- NOTE | 2019-05-15 07:48 | HP ---
History & Physical Update - History History: No Change - Physical Physical: No Change - Assessment Assessment: No Change - Plan Plan: No Change
--- NOTE | 2019-05-15 07:50 | OP ---
Operative Note - Note: Operative Date: 05/15/19 Pre-Operative Diagnosis: R renal calculus Operation: ESWL R Findings: 4 mm radiolucent R renal calculus Post-Operative Diagnosis: Same as Pre-op Surgeon: Pedro Torres Anesthesiologist/JEWELRY DRILL OPERATOR: Dewayne Kay Anesthesia: Fractional Estimated Blood Loss (mls): 0 Operative Report Dictated: Yes
[2019-05-15] MEDS ORDERED: KETOROLAC TROMETHAMINE 30 MG/1 ML VIAL ONE (08:34)
[2019-05-15] MEDS ORDERED: MIDAZOLAM HCL 2 MG/2 ML SINGLE DOSE VIAL ONE ×2 (08:34)
[2019-05-15 11:29] VITALS: BP 121/60; PULSE 78; TEMP 97.4
--- NOTE | 2019-05-15 11:59 | OP ---
DATE OF OPERATION: 05/15/2019 PREOPERATIVE DIAGNOSIS: Left renal calculus. POSTOPERATIVE DIAGNOSIS: Left renal calculus. PROCEDURE: Extracorporeal shock-wave lithotripsy, left. SURGEON: Pedro Tomlinson MD REGULATOR PIN INSERTER: None. ANESTHESIA: IV sedation. ANESTHESIOLOGIST: Dewayne Kay MD SPECIMENS: None. CULTURES: None. DRAINS: None. ESTIMATED BLOOD LOSS: None. COMPLICATIONS: None. DESCRIPTION OF PROCEDURE: Patient was brought into the operating room, placed on the operating room table in supine position. After administration of intravenous sedation, patient was positioned over the treatment head, and under fluoroscopic guidance, overlying bowel gas obscured visualized of left renal calculus. Now under ultrasound guidance, 4-mm left [id number] renal calculus was identified, targeted, and delivered 2500 shocks at maximum kilovoltage with excellent fragmentation. He tolerated the procedure well. Transferred to the recovery room in stable condition. PEDRO TOMLINSON M.D. [id number]
== END 2019-05-15 11:10 | disposition home or self-care (01) ==
LOC: JASU-SURG 07:18
PROVIDERS: ATTEND Urology
PROC: 0TF4XZZ Fragmentation in Left Kidney Pelvis, External Approach (ICD-10-PCS; principal; 2019-05-15 08:15)
DX: N20.0 Calculus of kidney (principal)
CPT/HCPCS: 82962

== ENCOUNTER 2020-10-27 05:32 | Day surgery (SDC) | payer OTHER ==
[2020-10-24 13:12] VITALS: BMI 41.3
[2020-10-27] MEDS ORDERED: PROPOFOL 20 ML ONE (11:11)
[2020-10-27] MEDS ORDERED: MIDAZOLAM HCL 2 MG/2 ML SINGLE DOSE VIAL ONE (11:11)
[2020-10-27] MEDS ORDERED: DESFLURANE GAS 240 ML BOTTLE IH ONE (15:42)
[2020-10-27] MEDS ORDERED: KETOROLAC TROMETHAMINE 30 MG/1 ML VIAL ONE (15:44)
[2020-10-27 17:56] VITALS: BP 119/75; PULSE 74; TEMP 97.8
== END 2020-10-27 17:05 | disposition home or self-care (01) ==
LOC: JASU-SURG 05:32
PROVIDERS: ATTEND Urology
PROC: 0TF3XZZ Fragmentation in Right Kidney Pelvis, External Approach (ICD-10-PCS; principal; 2020-10-27 13:00)
DX: N20.0 Calculus of kidney (principal)

== ENCOUNTER 2021-08-17 04:23 | Day surgery (SDC) | payer OTHER ==
[2021-08-12 16:49] VITALS: BMI 41.3
[2021-08-17] MEDS ORDERED: MIDAZOLAM HCL 2 MG/2 ML SINGLE DOSE VIAL ONE ×2 (11:07→11:10)
[2021-08-17 13:23] VITALS: BP 119/79; PULSE 60; TEMP 97.8
== END 2021-08-17 13:25 | disposition home or self-care (01) ==
LOC: JASU-SURG 04:23
PROVIDERS: ATTEND Urology
PROC: 0TF3XZZ Fragmentation in Right Kidney Pelvis, External Approach (ICD-10-PCS; principal; 2021-08-17 10:00)
DX: N20.0 Calculus of kidney (principal)

== ENCOUNTER 2022-12-20 03:45 | Day surgery (SDC) | payer OTHER ==
[2022-12-16 14:33] VITALS: BMI 41.3
[2022-12-20 07:35] VITALS: RESP 18
[2022-12-20] MEDS ORDERED: MIDAZOLAM HCL 2 MG/2 ML SINGLE DOSE VIAL ONE (09:25)
[2022-12-20] MEDS ORDERED: ONDANSETRON 4 MG/2 ML VIAL ONE (09:28)
[2022-12-20] MEDS ORDERED: KETOROLAC TROMETHAMINE 30 MG/1 ML VIAL ONE (09:28)
[2022-12-20 10:53] VITALS: BP 112/75; PULSE 78; TEMP 98
== END 2022-12-20 11:15 | disposition home or self-care (01) ==
LOC: JASU-SURG 03:45
PROVIDERS: ATTEND Urology
PROC: 0TF4XZZ Fragmentation in Left Kidney Pelvis, External Approach (ICD-10-PCS; principal; 2022-12-20 09:00)
DX: N20.0 Calculus of kidney (principal)